=== PATIENT | male | born 1950 | race Caucasian/White ===

== ENCOUNTER 2017-02-02 06:23 | Emergency (ER) | payer SELFPAY ==
[~2017-02-02] VITALS: Ht 177.8 cm; Wt 99.0 kg
[2017-02-02] MEDS ORDERED: FLUORESCEIN SODIUM 1MG/STRIP LEFTEYE ONE (08:15)
[2017-02-02] MEDS ORDERED: TETRACAINE 0.5% OPHTH DROPS 4ML LEFTEYE ONE (08:15)
[2017-02-02 09:19] VITALS: BP 130/75
== END 2017-02-02 09:22 | disposition home or self-care (01) ==
LOC: EDSEX 06:23 → ER 06:24
DX: H57.12 Ocular pain, left eye (principal); Z98.42 Cataract extraction status, left eye; Z98.41 Cataract extraction status, right eye
CPT/HCPCS: 99283